=== PATIENT | female | born 1995 | race Two or more races ===

== ENCOUNTER → 2024-11-02 | Outpatient (CLI) | payer BC, SELFPAY ==
[2024-11-02 11:00] LABS: Collection Type, Urine Clean Catch
[2024-11-02 11:23] LABS: Basophils # (Auto) 0.1 Thou/mm3 (0.0-0.2); Basophils % (Auto) 1 % (0-2.5); Eosinophils # (Auto) 0.3 Thou/mm3 (0.0-0.5); Eosinophils % (Auto) 4 % (0-10); Hematocrit 41.3 % (36.0-46.0); Immature Granulocytes % (Auto) 0 % (0-0); Immature Granulocytes Auto 0.02 Thou/mm3 (0.00-0.00); Lymphocytes # (Auto) 2.4 Thou/mm3 (1.0-4.8); Lymphocytes % (Auto) 30 % (10-50); Mean Corpuscular HGB Conc 33.9 g/dl (31.0-37.0); Mean Corpuscular Hemoglobin 28.9 pg (25.0-35.0); Mean Corpuscular Volume 85 fL (80-100); Monocytes # (Auto) 0.5 Thou/mm3 (0.0-0.8); Monocytes % (Auto) 6 % (0-12); Neutrophils # (Auto) 4.8 Thou/mm3 (1.8-7.7); Neutrophils % (Auto) 60 % (37-80); Nucleated Red Blood Cell % 0 /100 WBC (0); Platelet Count 377 Thou/mm3 (140-440); RDW Standard Deviation 38.5 fL (36.4-46.3); Red Blood Count 4.85 Miln/mm3 (4.00-5.20); White Blood Count 8.1 Thou/mm3 (3.6-11.0)
[2024-11-02 11:29] LABS: Bilirubin,Urine Negative (Negative); Blood,Urine 1+ (Negative); Clarity,Urine Clear (Clear/Hazy); Color,Urine Yellow (Lt Yel-Yel); Culture Indicated,Urine Not Indicated; Glucose, Urine Negative (Negative); Ketones,Urine Negative (Negative); Leukocyte Esterase,Urine Negative (Negative); Nitrite,Urine Negative (Negative); Protein,Urine Trace (Neg - Trace); RBC,Urine 5 /hpf (0-3); Specific Gravity,Urine 1.028 (1.001-1.035); Squamous Epithelial Cell,Urine 5 /hpf (0-5); Urobilinogen,Urine Negative mg/dL (0.0-1.0); WBC,Urine 1 /hpf (0-5)
[2024-11-02 11:35] LABS: Glucose Estimated Average 111 mg/dL (80-131); Hemoglobin A1C 5.5 % Hgb (4.8-6.0); Iron 103 mcg/dL (50-170)
[2024-11-02 11:42] LABS: Vitamin B12 408 pg/mL (211-911); Vitamin D 25 Hydroxy Total 15.8 ng/mL (7.3-40.2)
[2024-11-02 11:54] LABS: Alanine Aminotransferase 67 U/L (10-49); Albumin/Globulin Ratio 2.1 (1.2-2.2); Alkaline Phosphatase 64 U/L (46-116); Anion Gap 8 (7-16); Aspartate Amino Transferase 29 U/L (0-34); BUN/Creatinine Ratio 18 Ratio (12-20); Bilirubin,Total 0.7 mg/dL (0.3-1.2); Blood Urea Nitrogen 14 mg/dL (9-23); Calcium 9.5 mg/dL (8.3-10.6); Calcium (Corrected) 9.5 mg/dL (8.5-10.1); Carbon Dioxide 26.1 mMol/L (20.0-31.0); Cardiac Risk Estimate 5.1 RATIO (3.7-5.6); Chloride 101 mMol/L (98-107); Cholesterol 202 mg/dL (132-200); Creatinine (Component) 0.8 mg/dL (0.6-1.3); Globulin 2.4 gm/dL (2.3-3.5); Glucose 97 mg/dL (74-106); HDL Cholesterol 40 mg/dL (40-60); LDL Cholesterol,Calculated 136 mg/dL (0-130); Osmolality,Calculated 270 (275-295); Potassium 4.2 mMol/L (3.4-5.1); Sodium 135 mMol/L (136-145); Total Protein 7.4 gm/dL (5.7-8.2); Triglycerides 131 mg/dL (30-150); eGFR > 60 See Note
[2024-11-02 11:58] LABS: Thyroid Stimulating Hormone 1.62 uIU/mL (0.55-4.78)
== END | disposition home or self-care (01) ==
LOC: COPL 09:56
PROVIDERS: PCP Family Medicine; Referring Provider Nurse Practitioner Family; Visit Provider Nurse Practitioner Family
DX: R03.0 Elevated blood-pressure reading, without diagnosis of hypertension (principal); D64.9 Anemia, unspecified
CPT/HCPCS: 36415; 80053; 80061; 81001; 82306; 82607; 83036; 83540; 84443; 85025

== ENCOUNTER 2025-07-24 16:46 | Emergency (ER) | payer BC, SELFPAY ==
[2025-07-24 16:47] VITALS: BMI 32.5
[2025-07-24 17:19] VITALS: BP 130/91; PULSE 104; RESP 17; TEMP 37.5; O2SAT 98
--- NOTE | 2025-07-24 17:24 | PD.EDRME ---
Rapid Medical Screening Exam RME Arrival date/time: 07/24/25 16:46 Chief Complaint: Urogenital-Female Time Seen by Provider: 07/24/25 17:12 Vital signs: Vital Signs Temperature 99.5 F 07/24/25 17:19 Pulse Rate 104 H 07/24/25 17:19 Respiratory Rate 17 07/24/25 17:19 Blood Pressure 130/91 H 07/24/25 17:19 Pulse Oximetry (%) 98 07/24/25 17:19 Oxygen Delivery Method Room Air 07/24/25 17:19 RME Narrative: Pelvic pain, dysuria started this morning. Patient is 5 weeks ob. LMP 06/13/25
--- NOTE | 2025-07-24 17:25 | XR_ITS ---
Examination: OB Transvaginal ultrasound of the pelvis, complete Technique: Transvaginal sonographic images pelvis performed using ricks scale imaging Exam date and time: July 24, 2025, 1816 hrs. Indications: Pelvic pain beginning today Findings: Uterus 8.2 cm endometrial stripe 0.7 cm No uterine mass or intrauterine gestation Right ovary 2.6 cm arterial flow and Left ovary complex mass 6.2 x 4.0 x 5.9 cm. Impression: Left ovarian primarily solid mass 6.2 x 4.0 x 5.2 cm, differential would include ovarian tumor, ovarian abscess, endometrioma Recommend elective MRI pelvis follow-up pre and postcontrast
[2025-07-24 18:14] LABS: Basophils # (Auto) 0.1 Thou/mm3 (0.0-0.2); Basophils % (Auto) 1 % (0-2.5); Eosinophils # (Auto) 0.3 Thou/mm3 (0.0-0.5); Eosinophils % (Auto) 3 % (0-10); Hematocrit 38.0 % (36.0-46.0); Hemoglobin 12.9 g/dL (12.0-16.0); Immature Granulocytes Auto 0.05 Thou/mm3 (0.00-0.00); Lymphocytes # (Auto) 2.6 Thou/mm3 (1.0-4.8); Lymphocytes % (Auto) 22 % (10-50); Mean Corpuscular HGB Conc 33.9 g/dl (31.0-37.0); Mean Corpuscular Hemoglobin 28.9 pg (25.0-35.0); Mean Corpuscular Volume 85 fL (80-100); Monocytes # (Auto) 0.5 Thou/mm3 (0.0-0.8); Monocytes % (Auto) 4 % (0-12); Neutrophils # (Auto) 8.3 Thou/mm3 (1.8-7.7); Neutrophils % (Auto) 70 % (37-80); Nucleated Red Blood Cell # 0.00 Thou/mm3 (0.00-0.00); Nucleated Red Blood Cell % 0 /100 WBC (0); Platelet Count 371 Thou/mm3 (140-440); RDW Standard Deviation 39.5 fL (36.4-46.3); Red Blood Count 4.46 Miln/mm3 (4.00-5.20); White Blood Count 11.9 Thou/mm3 (3.6-11.0)
--- NOTE | 2025-07-24 18:42 | PD.EDFMALE ---
ED Female Urogenital RME/HPI General Chief complaint: Urogenital-Female Stated complaint: ABD PAIN, 5WKS PREG Time Seen by Provider: 07/24/25 17:12 Arrival date/time: 07/24/25 16:46 RME / HPI RME / HPI Narrative: Pelvic pain, dysuria started this morning. Patient is 5 weeks ob. LMP 06/13/25 ----- See MDM for Dr. Crouch's HPI documentation. Related Data Allergies Allergy/AdvReac Type Severity Reaction Status Date / Time No Known Allergies Allergy Verified 07/24/25 16:49 Review of Systems Review of Systems Systems Reviewed: All systems reviewed, normal except as documented Past Medical History Social History SMOKING STATUS: Never smoker ED Exam Narrative Physical exam: See MDM for Dr. Crouch's physical exam documentation. Course Quality Measures none Orders Category Date Time Status US OB transvaginal Stat Exams 07/24/25 17:25 Completed Beta HCG,Quantitative Stat Lab 07/24/25 18:02 Received Bilirubin,Direct Stat Lab 07/24/25 18:02 Received CBC Stat Lab 07/24/25 18:02 Completed CMP [Comprehensive Metabolic Panel] Stat Lab 07/24/25 18:02 Received Magnesium Stat Lab 07/24/25 18:02 Received Rh Testing Only Stat Lab 07/24/25 18:02 Received Thyroid Stimulating Hormone Stat Lab 07/24/25 18:02 Received UA [Urinalysis] Stat Lab 07/24/25 17:25 Ordered Vital Signs Vital signs: Vital Signs Temperature 99.5 F 07/24/25 17:19 Pulse Rate 104 H 07/24/25 17:19 Respiratory Rate 17 07/24/25 17:19 Blood Pressure 130/91 H 07/24/25 17:19 Pulse Oximetry (%) 98 07/24/25 17:19 Oxygen Delivery Method Room Air 07/24/25 17:19 Urogenital - Female [facility] Narrative [facility] Narrative:: This section includes all my notes and documentations, including HPI, PE, and ED course. Fortunato Crouch MD HPI: ROS: All negative except as documented in HPI. Physical Exam: General: Alert and oriented. No acute distress when remaining still. Eyes: Conjunctivae and lids clear. ENT: No nasal congestion. Neck: Supple. Heart: RRR. Lungs: No respiratory distress. Good air movement. No rhonchi, wheezing, rales. Abdomen: Soft and nontender. Normal bowel sounds. No distension. No rebound or guarding. Back: No CVA tenderness. Skin: Warm and dry. Neuro: Alert and oriented X 3. I reviewed all diagnostic test results. My review of the tranvaginal US report is left ovarian primarily solid mass 6.2 x 4.0 x 5.2 cm. Blood tests remarkable for WBC 11.9 At this point, diagnoses include Treatment here included Significant improvement Not yet done: I discussed the case with our hospitalist. About the presentation and exam and diagnostics and treatments here. And need of further care in the hospital. Will accept the patient. Not yet done: Based on my best medical judgment, made decision no further evaluation or treatment indicated at this time. Patient understands and agrees to the discharge instructions customized and printed, see below. Fortunato Crouch MD Patient data External records reviewed:: [facility] previous records (Per chart review, patient has no relevant previous ED visits or admissions to this facility.) Clinical information provided by:: patient Social determinants that could affect healthcare access:: none Patient has the following chronic illnesses:: none How is presenting disease/condition affected by chronic disease/condition?: no chronic disease Evaluation data The following diagnostics were reviewed and interpreted by me:: lab results Lab and/or radiology exams considered but not ordered:: none Medications / Prescriptions Medications or Prescriptions considered but not ordered:: none Discharge Plan Prescriptions/Referrals Referrals: No Primary/Family,Physician [Primary Care Provider] - In 1 week Patient/Caregiver Discharge Instructions Print Language: Citizen Of [place]
[2025-07-24 18:57] LABS: Collection Type, Urine Clean Catch
[2025-07-24 19:03] LABS: Bilirubin,Urine Negative (Negative); Blood,Urine Trace (Negative); Clarity,Urine Turbid (Clear/Hazy); Color,Urine Yellow (Lt Yel-Yel); Glucose, Urine Negative (Negative); Ketones,Urine 1+ (Negative); Leukocyte Esterase,Urine Positive (Negative); Nitrite,Urine Negative (Negative); PH,Urine 5.5 (5.0-7.0); Protein,Urine Trace (Neg - Trace); RBC,Urine 5 /hpf (0-3); Specific Gravity,Urine 1.032 (1.001-1.035); Squamous Epithelial Cell,Urine 12 /hpf (0-5); Urobilinogen,Urine Negative mg/dL (0.0-1.0); WBC,Urine 13 /hpf (0-5)
--- NOTE | 2025-07-24 19:40 | PD.EDFMALE ---
ED Female Urogenital RME/HPI General Chief complaint: Urogenital-Female Stated complaint: ABD PAIN, 5WKS PREG Time Seen by Provider: 07/24/25 17:12 Arrival date/time: 07/24/25 16:46 RME / HPI RME / HPI Narrative: Pelvic pain, dysuria started this morning. Patient is 5 weeks ob. LMP 06/13/25 ----- See MDM for Dr. Crouch's HPI documentation. Related Data Previous Rx's ?Medication ?Instructions ?Recorded oxycodone-acetaminophen 5 mg-325 2 tab PO Q8H PRN pain #20 tabs 07/24/25 mg tablet (Percocet) Allergies Allergy/AdvReac Type Severity Reaction Status Date / Time No Known Allergies Allergy Verified 07/24/25 16:49 Review of Systems Review of Systems Systems Reviewed: All systems reviewed, normal except as documented ED Exam Narrative Physical exam: See MDM for Dr. Crouch's physical exam documentation. Course Quality Measures none Orders Category Date Time Status US OB transvaginal Stat Exams 07/24/25 17:25 Completed Beta HCG,Quantitative Stat Lab 07/24/25 18:02 Completed Bilirubin,Direct Stat Lab 07/24/25 18:02 Completed CBC Stat Lab 07/24/25 18:02 Completed CMP [Comprehensive Metabolic Panel] Stat Lab 07/24/25 18:02 Completed Magnesium Stat Lab 07/24/25 18:02 Completed Rh Testing Only Stat Lab 07/24/25 18:02 Completed Thyroid Stimulating Hormone Stat Lab 07/24/25 18:02 Completed UA [Urinalysis] Stat Lab 07/24/25 18:35 Completed Vital Signs Vital signs: Vital Signs Temperature 99.5 F 07/24/25 17:19 Pulse Rate 104 H 07/24/25 17:19 Respiratory Rate 17 07/24/25 17:19 Blood Pressure 130/91 H 07/24/25 17:19 Pulse Oximetry (%) 98 07/24/25 17:19 Oxygen Delivery Method Room Air 07/24/25 17:19 Urogenital - Female MDM Narrative MDM Narrative:: This section includes all my notes and documentations, including HPI, PE, and ED course. Fortunato Crouch MD HPI: 30yo female here with pelvic cramping since yesterday. test positive earlier today. She has trouble localizing the pain. Has trouble describing the quality and quantity of the pain. Has trouble describing exacerbating factors or relieving factors. LMP was 06/16/25. No vaginal bleeding, nausea, or vomiting. No other complaints reported. ROS: All negative except as documented in HPI. Physical Exam: General: Alert and oriented. No acute distress when remaining still. Eyes: Conjunctivae and lids clear. ENT: No nasal congestion. Neck: Supple. Heart: RRR. Lungs: No respiratory distress. Good air movement. No rhonchi, wheezing, rales. Abdomen: Soft with equivocal pelvic tenderness. Normal bowel sounds. No distension. No rebound or guarding. Back: No CVA tenderness. Skin: Warm and dry. Neuro: Alert and oriented X 3. I reviewed all diagnostic test results. My review of the transvaginal US report is no IUP and left mass 6.2 x 4.0 x 5.2 cm. Blood and urine tests remarkable for Beta HCG 107. At this point, diagnoses include: Early Pelvic mass Recommended more outpatient workup. Based on my best medical judgment, made decision no further evaluation or treatment indicated at this time. Patient understands and agrees to the discharge instructions customized and printed, see below. Discharge Instructions from Dr. Crouch printed for you: 1. After evaluation, blood test shows you are . But we are too early for the ultrasound to see the in the uterus. 2. And you have a plum sized left ovarian mass. This is probably causing your symptoms. 3. Percocets for severe pain. 4. See a private doctor on 07/27/2025 for recheck and further care. Ask to review all test results and official radiology reports, to make sure you receive all necessary follow-ups and monitoring. Your hCG ( hormone level) was 107 today. This doubles every 2 to 3 days in normal . Ask for help with repeat ultrasound in 2 to 3 weeks. Help you find the cause/treatment of your pelvic mass. With imaging studies (such as MRI) and referrals to see specialists, including architectural design professor. 5. Seek immediate medical care with worsening or with any concerns. Fortunato Crouch MD Patient data External records reviewed:: [facility] previous records (Per chart review, patient has no previous ED visits or admissions to this facility.) Clinical information provided by:: patient Social determinants that could affect healthcare access:: none Patient has the following chronic illnesses:: none How is presenting disease/condition affected by chronic disease/condition?: no chronic disease Evaluation data The following diagnostics were reviewed and interpreted by me:: lab results and radiology exam(s) Lab and/or radiology exams considered but not ordered:: none Interpretation Summary: I reviewed all diagnostic test results. My review of the transvaginal US report is no IUP and left mass 6.2 x 4.0 x 5.2 cm. Blood and urine tests remarkable for Beta HCG 107. Medications / Prescriptions Medications or Prescriptions considered but not ordered:: none Medication administrations:: none Consultations Consultation(s) initiated? (list below): No Diagnosis Urogenital Female Differential Diagnosis: urinary tract infection and other (Ectopic , IUP, threatened miscarriage) Most likely diagnosis given after review of the tests above:: Pelvic mass Early Admission Indicated Admission indicated?: not indicated Explain why admission is indicated or not indicated:: With no condition needing emergent intervention, there was no indication for admission. Admission Request Was there a request for admission?: No Disposition Plan Disposition Plan: Discharge Discharge Attestation Discharge Attestation: The patient and all family members were given an opportunity to ask questions and understood the discharge instructions. Discharge instructions specifically effects, indications for sooner follow up or return to the emergency department, and the expected course of current diagnosis. Patient condition: Stable Discharge Plan Plan Patient Disposition: HOME (Self Care) Prescriptions/Referrals Prescriptions/Med Rec: New oxycodone-acetaminophen [Percocet] 5-325 mg tablet 2 tab PO Q8H MDD 6 PRN (Reason: pain) Qty: 20 0RF Referrals: No Primary/Family,Physician [Primary Care Provider] - In 1 week Problem List Clinical Impression: , Pelvic mass Patient/Caregiver Discharge Instructions Discharge Activity: activity as tolerated Education Materials: ED Brain Tumor, ED , New Dx Additional Instructions: Discharge Instructions from Dr. Crouch printed for you: 1. After evaluation, blood test shows you are . But we are too early for the ultrasound to see the in the uterus. 2. And you have a plum sized left ovarian mass. This is probably causing your symptoms. 3. Percocets for severe pain. 4. See a private doctor on 07/27/2025 for recheck and further care. Ask to review all test results and official radiology reports, to make sure you receive all necessary follow-ups and monitoring. Your hCG ( hormone level) was 107 today. This doubles every 2 to 3 days in normal . Ask for help with repeat ultrasound in 2 to 3 weeks. Help you find the cause/treatment of your pelvic mass. With imaging studies (such as MRI) and referrals to see specialists, including architectural design professor. 5. Seek immediate medical care with worsening or with any concerns. Print Language: Turkish Stand Alone Forms: [employer] Award Info., Patient Portal Info Letter
[2025-07-24 20:10] LABS: Alanine Aminotransferase 190 U/L (10-49); Albumin, Serum 5.0 gm/dL (3.5-5.0); Albumin/Globulin Ratio 1.7 (1.2-2.2); Alkaline Phosphatase 59 U/L (46-116); Anion Gap 11 (7-16); Aspartate Amino Transferase 87 U/L (0-34); BUN/Creatinine Ratio 11 Ratio (12-20); Beta HCG,Quantitative 107 mIU/mL (<5.0); Bilirubin,Total 0.4 mg/dL (0.3-1.2); Blood Urea Nitrogen 9 mg/dL (9-23); Calcium 9.6 mg/dL (8.3-10.6); Calcium (Corrected) 9.6 mg/dL (8.5-10.1); Carbon Dioxide 22.2 mMol/L (20.0-31.0); Chloride 105 mMol/L (98-107); Creatinine (Component) 0.8 mg/dL (0.6-1.3); Estimated Creatinine Clearance 103.1 mL/min (>60); Globulin 2.9 gm/dL (2.3-3.5); Glucose 126 mg/dL (74-106); Osmolality,Calculated 276 (275-295); Potassium 3.8 mMol/L (3.4-5.1); Sodium 138 mMol/L (136-145); Total Protein 7.9 gm/dL (5.7-8.2); eGFR > 60 See Note
[2025-07-24 20:27] LABS: Bilirubin,Direct 0.1 mg/dL (0.0-0.3); Magnesium 1.7 mg/dL (1.6-2.6); Thyroid Stimulating Hormone 1.94 uIU/mL (0.55-4.78)
[2025-07-24 20:45] VITALS: RESP 16
== END 2025-07-24 20:46 | disposition home or self-care (01) ==
PROVIDERS: Physician Assistant; Emergency Provider Emergency Medicine
DX: O26.891 Other specified pregnancy related conditions, first trimester (principal); N83.8 Other noninflammatory disorders of ovary, fallopian tube and broad ligament; Z3A.01 Less than 8 weeks gestation of pregnancy
CPT/HCPCS: 36415; 76817; 80053; 81001; 82248; 83735; 84443; 84702; 85025; 86901; 99283

== ENCOUNTER → 2025-07-27 | Outpatient (CLI) | payer BC, SELFPAY ==
[2025-07-27 08:45] LABS: Misc Send Out* See Sep Rpt
[2025-07-27 09:26] LABS: Basophils # (Auto) 0.1 Thou/mm3 (0.0-0.2); Basophils % (Auto) 1 % (0-2.5); Eosinophils # (Auto) 0.3 Thou/mm3 (0.0-0.5); Eosinophils % (Auto) 5 % (0-10); Hematocrit 35.3 % (36.0-46.0); Hemoglobin 11.9 g/dL (12.0-16.0); Immature Granulocytes Auto 0.02 Thou/mm3 (0.00-0.00); Lymphocytes # (Auto) 1.7 Thou/mm3 (1.0-4.8); Lymphocytes % (Auto) 24 % (10-50); Mean Corpuscular HGB Conc 33.7 g/dl (31.0-37.0); Mean Corpuscular Hemoglobin 28.8 pg (25.0-35.0); Mean Corpuscular Volume 86 fL (80-100); Monocytes # (Auto) 0.4 Thou/mm3 (0.0-0.8); Monocytes % (Auto) 6 % (0-12); Neutrophils # (Auto) 4.3 Thou/mm3 (1.8-7.7); Neutrophils % (Auto) 64 % (37-80); Nucleated Red Blood Cell # 0.00 Thou/mm3 (0.00-0.00); Nucleated Red Blood Cell % 0 /100 WBC (0); Platelet Count 315 Thou/mm3 (140-440); RDW Standard Deviation 39.3 fL (36.4-46.3); Red Blood Count 4.13 Miln/mm3 (4.00-5.20); White Blood Count 6.8 Thou/mm3 (3.6-11.0)
[2025-07-27 09:41] LABS: Alanine Aminotransferase 158 U/L (10-49); Albumin, Serum 4.9 gm/dL (3.5-5.0); Albumin/Globulin Ratio 2.0 (1.2-2.2); Alkaline Phosphatase 56 U/L (46-116); Anion Gap 10 (7-16); Aspartate Amino Transferase 79 U/L (0-34); BUN/Creatinine Ratio 13 Ratio (12-20); Beta HCG,Quantitative 474 mIU/mL (<5.0); Bilirubin,Total 0.7 mg/dL (0.3-1.2); Blood Urea Nitrogen 8 mg/dL (9-23); Calcium 9.5 mg/dL (8.3-10.6); Calcium (Corrected) 9.5 mg/dL (8.5-10.1); Carbon Dioxide 22.6 mMol/L (20.0-31.0); Chloride 107 mMol/L (98-107); Creatinine (Component) 0.6 mg/dL (0.6-1.3); Globulin 2.5 gm/dL (2.3-3.5); Glucose 102 mg/dL (74-106); LDH (Lactate Dehydrogenase) 251 U/L (120-246); Osmolality,Calculated 277 (275-295); Potassium 3.5 mMol/L (3.4-5.1); Sodium 140 mMol/L (136-145); Total Protein 7.4 gm/dL (5.7-8.2); eGFR > 60 See Note
[2025-07-27 09:44] LABS: HCG,Qualitative Serum Positive
[2025-07-27 10:03] LABS: AFP Non-Pregnant 1.60 ng/mL (<8.10); CA 125 47.0 U/mL (<30.2); Carcinoembryonic Antigen 0.6 ng/mL (0.0-5.0)
[2025-08-01 07:14] LABS: CA 19-9 Antigen* 33 U/mL (<34)
== END | disposition home or self-care (01) ==
LOC: COPL 08:21
PROVIDERS: PCP Nurse Practitioner Family; Referring Provider Nurse Practitioner Family; Visit Provider Nurse Practitioner Family
DX: C56.2 Malignant neoplasm of left ovary (principal); N83.202 Unspecified ovarian cyst, left side; D64.9 Anemia, unspecified
CPT/HCPCS: 36415; 80053; 82105; 82378; 83615; 84702; 84703; 85025; 86301; 86304

== ENCOUNTER → 2025-07-28 | Outpatient (CLI) | payer BC, SELFPAY | END | disposition home or self-care (01) | LOC: SLDO 14:46 | PROVIDERS: Referring Provider Nurse Practitioner Family; Visit Provider Nurse Practitioner Family | DX: N39.0 Urinary tract infection, site not specified (principal) | CPT/HCPCS: 87086; 87186 ==

== ENCOUNTER 2025-08-05 08:19 | Outpatient (AMB) | payer BC, SELFPAY ==
--- NOTE | 2025-08-05 08:33 | AMB.OBINITIA ---
Vital Signs 08/05/25 08:43 Height 1.57 m Height Method Stated Weight 81.873 kg Weight Measurement Method Standing Scale BMI 33.0 BP 128/85 H Blood Pressure Source Automatic Cuff Blood Pressure Location Right Upper Arm Position Sitting Respiration 17 Pulse 89 Pulse Source Monitor Temp 98.3 F Temp Source Temporal Artery Scan Pulse Oximetry (%) 95 Oxygen Delivery Method Room Air Allergies/Home Meds Allergies & Medications Allergies No Known Allergies Allergy (Verified 08/05/25 08:33) Medication Reconciliation ketorolac 10 mg tablet 10 mg PO .prn 08/05/25 [History Confirmed 08/05/25] nitrofurantoin monohydrate/macrocrystals 100 mg capsule 100 mg PO Q12H 08/05/25 [History Confirmed 08/05/25] vits no.126-ferrous fum 28 mg iron-folic acid 800 mcg tablet (Classic ) 1 tab PO QDAY 90 days #90 tabs 08/05/25 [Rx] simethicone 250 mg capsule (Gas-X) 250 mg PO QDAY PRN 08/05/25 [History Confirmed 08/05/25] tramadol 50 mg tablet 50 mg PO Q8H PRN 08/05/25 [History Confirmed 08/05/25] Intake Visit Data Collection New Patient or Established: Established Patient (seen at [facility] within 3 years) Reason for Visit:: OBI Seen by Clinical Staff ONLY (RN/MA): No Clinical Education Coordinator Required: No Do You Feel Safe at Home: Yes Authorities Contacted: N/A PCP or OBGYN visit in last 3 months: No Hx Now: Yes Are you currently on any form of Control: No Last menstrual period: 06/16/25 Pain Present Currently: Yes Pain Location: Abdomen and Back Pain Scale Used: Ellis-Cabrera/Numerical Pain scale:: 4 Smoking Status Smoking Status: Never smoker Questionnaires Covid-19 Vaccine Questionnaire Has patient been vacinated for Covid-19 Have you been vacinated for Covid-19: Yes PHQ-9 PHQ-2 Over the last 2 weeks, how often have you been bothered by any of the following problems? 1. Little interest or pleasure in doing things: not at all 2. Feeling down, depressed, or hopeless: not at all Total score: 0 PHQ-9 3. Trouble falling or staying asleep, or sleeping too much: Not at all 4. Feeling tired or having little energy: Not at all 5. Poor appetite or overeating: Not at all 6. Feeling bad about yourself - or that you are a failure or have let yourself or your family down: Not at all 7. Trouble concentrating on things, such as reading the newspaper or watching television: Not at all 8. Moving or speaking so slowly that other people could have noticed? - Or the opposite - being so fidgety or restless that you have been moving around a lot more than usual: not at all 9. Thoughts that you would be better off or of hurting yourself in some way: Not at all Total score: 0 If you checked off any problems, how difficult have these problems made it for you to do your work, take care of things at home, or get along with other people?: not difficult at all Source: Developed by Drs. Kenton Boswell, Laurence Luo, Ariel Jaramillo and colleagues, with an educational gurdeep from [employer]. Depression screen completed yes Social History Living Situation History Marital Status: Lives With: Spouse Housing: House Tobacco History Smoking Status: Never smoker Second Hand Smoke Exposure: No Alcohol History Alcohol Intake: Never Domestic Abuse History Do You Feel Safe at Home: Yes History of Present Illness HPI Narrative Follow-up from recent ER visit for sudden-onset pelvic pain Patient is a 30-year-old in early , presenting for follow-up from a recent emergency room visit for sudden-onset pelvic pain. She presented to the emergency room on July 24, 2025, with acute pelvic pain. She is experiencing pelvic pain, which she attributes to pressure from an ovarian mass identified on imaging. She also reports having implantation pain, describing it as period cramp-like pains that occur when the embryo attaches to the uterus. She is currently taking pain medications that were prescribed to her, which she reports are helping with her symptoms. The patient is treating herself as having a normal and is following precautions, avoiding [id number] medications that would not be safe in . She does not currently have vitamins but will be provided with them. Medical History: - Emergency room visit on July 24, 2025 for sudden-onset pelvic pain Obstetric History: - GPAL: A0 L0 - First - Early with rising beta-hCG levels (107 to 474) Medications: - Pain medicines given from ER visit - Tylenol as needed for pain Social History: - No children, first - Serum beta-hCG (07-24-2025): 107 - Transvaginal ultrasound (07-24-2025): Left ovarian solid mass measuring 6.2 x 4 x 5.2 cm. No intrauterine mass or intrauterine gestation identified. - Serum beta-hCG (07-27-2025): 474 OB Initial Visit Menstrual History Menstrual reliability: definite Flow: heavy Menstrual regularity: regular Monthly: Yes Age at menarche: 17 On control pills at conception: No OB History : 1 Para: 0 # of Living Children: 0 Infection History & Risk Evaluation History of STDs: chlamydia HIV risk evaluation: low risk Patient or partner has history of Genital Herpes: No Varicella/chicken pox status: unknown Genetic Screening & History Genetic Screening/Teratology Counseling - Includes patient, baby's father, or anyone in either family with: 1. Patient's age 35 years or older as of estimated date of delivery: No 2. Thalassemia (Telugu, Tunisian, Mediterranean, or Background); MCV less than 80: No 3. Neural Tube Defect (Meningomyelocele, Spina Bifida, or Anencephaly): No 4. Congenital Heart Defect: No 5. Down Syndrome: No 6. Galen-Sachs (Ashkenazi Latter Day, Cajun, Ethiopian [place]): No 7. Amita Disease (Ashkenazi Latter Day): No 8. Familial Dysautonomia (Ashkenazi Latter Day): No 9. Sickle Cell Disease or Trait (): No 10. Hemophilia or other blood disorders: No 11. Muscular Dystrophy: No 12. Cystic Fibrosis: No 13. Clarkson's Chorea: No 14. Mental Retardation/Autism: No 15. Other inherited genetic or chromosomal disorder: No 16. Maternal Metabolic Disorder (EG,TYPE 1 Diabetes, PKU): No 17. Patient or baby's father had a child with defects not listed above: No 18. Recurrent loss or a stillbirth: No 19. Medications (including supplements, vitamins, herbs or otc drugs)/illicit/recreational drugs/alcohol since last menstrual period: No 20. Any other: No Infection History 1. Live with someone with TB or exposed to TB: No 2. Rash or viral illness since last menstrual period: No 3. Hepatitis B,C: No 4. History of STD: chlamydia Other (see comments) Source: [employer] Exam General General Appearance: alert, in no apparent distress and healthy appearing Head Head exam: atraumatic Neck Neck exam: Present normal inspection and trachea midline Chest Chest inspection: Present normal inspection and symmetric chest wall rise External exam: Present normal external exam; Absent tenderness Neuro Neurological exam: Present oriented X3 Psych Psychiatric exam: Present normal affect and normal mood Office Procedures [facility] LOC & Office Proc's Nursing/Assessment Patient Status: Established Patient OB Clinic Nursing Assessment: Medication Reconciliation, Update PMH in EMR and Vital Signs OB Clinic Coordination of Care: Complex Care and Chronic Disease 1-5, Education Complex Pt/Fam, Consent,records obtained, informed consent, Lab and Imaging orders, Results/Orders obtained and Staff clarify orders Special Needs: Heart tones Established Patient Charge Established Patient Point Assignment: 140 Established Patient Point Charge: EP Level 4 (120-155) Assessment & Plan Diagnosis / Problem List (1) of unknown anatomic location: Status: Acute (2) Left tubo-ovarian mass: Status: Acute Plan Early Assessment: Patient has appropriately rising beta-hCG levels from 107 on 07/24/2025 to 474 on 07/27/2025, consistent with early . Current beta-hCG levels are not high enough to visualize on ultrasound. This is the patient's first . Patient may be experiencing implantation pain as the embryo attaches to the uterus, which is normal and typically resolves by 10 weeks gestation. Plan: - Order serum beta-hCG level - Call patient with beta-hCG results - If beta-hCG levels are appropriate, proceed with ultrasound - Start vitamins - Follow all precautions including avoiding [id number] medications unsafe in - Continue prescribed pain medications as they are safe in - May take Tylenol for pain as needed - Maintain adequate hydration to prevent bladder spasms - Follow-up visit scheduled for next week Left ovarian mass Assessment: Transvaginal ultrasound revealed a 6.2 x 4 x 5.2 cm left ovarian solid mass. Differential diagnosis includes ovarian cyst, dermoid cyst, endometriosis, hormonal cysts, or inflammatory infections. In women of this age group, masses are typically benign cysts rather than malignant tumors. MRI was recommended for further evaluation. Plan: - Management approach depends on status - If progresses appropriately, ovarian mass management will be deferred until is established - If surgery is needed during , it would be performed in second trimester - If does not proceed, ovarian mass can be addressed sooner
[2025-08-05 08:43] VITALS: BP 128/85; PULSE 89; RESP 17; TEMP 36.8; O2SAT 95; BMI 33.0
== END 2025-08-05 09:14 | disposition home or self-care (01) ==
LOC: HODSOBC 08:19
PROVIDERS: Supervising Provider Obstetrics & Gynecology; Visit Provider Obstetrics & Gynecology
DX: O09.891 Supervision of other high risk pregnancies, first trimester (principal); O36.80X0 Pregnancy with inconclusive fetal viability, not applicable or unspecified; O99.891 Other specified diseases and conditions complicating pregnancy; N83.8 Other noninflammatory disorders of ovary, fallopian tube and broad ligament; Z3A.00 Weeks of gestation of pregnancy not specified
CPT/HCPCS: 99214; G0463

== ENCOUNTER → 2025-08-09 | Outpatient (CLI) | payer BC, SELFPAY ==
[2025-08-09 09:35] LABS: Beta HCG,Quantitative 17494 mIU/mL (<5.0)
== END | disposition home or self-care (01) ==
PROVIDERS: PCP Nurse Practitioner Family; Referring Provider Obstetrics & Gynecology; Visit Provider Obstetrics & Gynecology
DX: O36.80X0 Pregnancy with inconclusive fetal viability, not applicable or unspecified (principal)
CPT/HCPCS: 36415; 84702

== ENCOUNTER → 2025-08-12 | Outpatient (CLI) | payer BC, SELFPAY ==
--- NOTE | 2025-08-12 | XR_ITS ---
Examination: OB Transvaginal ultrasound of the pelvis, complete Technique: Transvaginal sonographic images pelvis performed using ricks scale imaging Exam date and time: August 12, 2025, 1614 hours INDICATIONS: Transvaginal pelvic sonogram 07/24/2025 left ovarian mass 6.2 x 4.0 x 5.2 cm elevated CA125 Ennogen FINDINGS: Uterus 9.8 cm, CRL 0.6 cm corresponds to 6 weeks 3 days gestational age Cardiac motion 141 bpm Right ovary 2.9 cm arterial flow. Left ovary 7.3 cm arterial flow, 2.8 x 2.1 x 2.7 cm complex mass with vascularity, 5.2 x 3.9 x 4.9 cm complex cyst with internal echoes Free fluid adjacent to the left ovary IMPRESSION: Viable intrauterine gestation 6 weeks 3 days Left ovarian complex mass with vascularity 2.8 x 2.1 x 2.7 cm, differential would include ovarian tumor Left ovarian complex cyst 5.2 x 3.9 x 4.9 cm, differential would include hemorrhagic cyst
--- NOTE | 2025-08-12 15:52 | XR_ITS ---
Examination: Complete OB ultrasound, less than 14 weeks, transabdominal Date and time of exam: August 12, 2025, 1604 hours INDICATIONS: Transvaginal pelvic sonogram 07/24/2025 left ovarian solid mass 6.2 cm Technique: Obstetrical ultrasound images less than 14 weeks performed via transabdominal imaging Findings: A normal shaped single intrauterine gestation is present in the uterus. CRL 0.7 cm corresponds to 6 weeks 4 days gestational age Cardiac motion 136 bpm Ultrasonographic survey of visible and placental structures unremarkable. Amniotic fluid volume appears appropriate for this estimated gestational age. Right ovary 3.4 cm arterial flow Left ovary 7.6 cm arterial flow free fluid adjacent to the left ovary Complex cyst left ovary, 3.7 x 3.4 x 2.6 cm IMPRESSION: Viable intrauterine gestation 6 weeks 4 days Please see the transvaginal pelvic sonogram report
== END | disposition home or self-care (01) ==
LOC: CDIM 15:44
PROVIDERS: PCP Family Medicine; Referring Provider Obstetrics & Gynecology; Visit Provider Obstetrics & Gynecology
DX: O36.80X0 Pregnancy with inconclusive fetal viability, not applicable or unspecified (principal); Z3A.01 Less than 8 weeks gestation of pregnancy; R19.00 Intra-abdominal and pelvic swelling, mass and lump, unspecified site
CPT/HCPCS: 76801; 76817